=== PATIENT | female | born 1995 | race Two or more races ===

== ENCOUNTER 2018-02-11 05:47 | Emergency (ER) | payer SELFPAY ==
[~2018-02-11] VITALS: Ht 170.2 cm; Wt 108.9 kg
[2018-02-11 06:10] VITALS: BP 111/67
--- NOTE | 2018-02-11 07:57 | Diagnostic Imaging Report ---
EXAM: XR Soft Tissue Neck CLINICAL HISTORY: PAIN TECHNIQUE: Frontal and lateral views of the soft tissues of the neck. COMPARISON: No relevant prior studies available. FINDINGS: Airway: Unremarkable. No abnormal narrowing. Bones/joints: C6 and C7 are obscured by the patient's shoulders. Soft tissues: No prevertebral soft tissue thickening. No thickening of the epiglottis. IMPRESSION: No prevertebral soft tissue thickening or thickening of the epiglottis.
[2018-02-11] MEDS ORDERED: IBUPROFEN600 MG ORAL (08:15)
[2018-02-11 08:20] VITALS: BP 111/67
--- NOTE | 2018-02-11 08:48 | Emergency Room Report ---
History of Present Illness General Chief Complaint: Neck Pain Source: Patient Present Illness HPI 22-year-old female presents ED complaining of neck pain. Notes pain to the anterior aspect of her neck. Started yesterday. 7 out of 10, dull, nonradiating. Denies difficulty breathing or swallowing. Denies sore throat. Denies chest pain or shortness of breath. Denies tongue swelling. No other aggravating relieving factors. Denies any other associated symptoms Allergies: Coded Allergies: No Known Allergies (Unverified , 12/07/15) Patient History Past Medical History: none Past Surgical History: none Pertinent Family History: none Social History: Denies: smoking, alcohol use, drug use Last Menstrual Period: on period Now: No Immunizations: UTD Reviewed Nursing Documentation: PMH: Agreed; PSxH: Agreed Nursing Documentation-PMH Past Medical History: No Stated History Review of Systems All Other Systems: negative except mentioned in HPI Physical Exam Vital Signs Date Time Temp Pulse Resp B/P (MAP) Pulse Ox O2 Delivery O2 Flow Rate FiO2 02/11/18 05:59 98.6 61 18 111/67 98 Room Air 98.6 Sp02 EP Interpretation: reviewed, normal General Appearance: no apparent distress, alert, GCS 15, non-toxic Head: normocephalic ENT: hearing grossly normal, normal pharynx, no angioedema, normal voice, TMs + canals normal, uvula midline Neck: no bony tend, other - TTP L anterior neck. no stridor Respiratory: normal inspection Cardiovascular #1: normal inspection Gastrointestinal: normal inspection Rectal: deferred Genitourinary: no CVA tenderness Musculoskeletal: normal inspection Neurologic: alert, oriented x3, responsive, motor strength/tone normal, sensory intact, speech normal Psychiatric: normal inspection Skin: normal inspection Lymphatic: normal inspection Medical Decision Making Diagnostic Impression: Primary Impression: Neck pain ER Course Hospital Course 22-year-old F presents to ED complaining of L anterior neck pain Differential diagnoses include: Fracture, pharyngitis, epiglottitis, RPA Clinical course Patient placed on stretcher. After initial history, physical exam reveals female in no acute distress. There is some tenderness to the left anterior neck. Not adjacent to the thyroid. No signs of thyromegaly. No lymphadenopathy. No stridor. Pharynx unremarkable. Uvula midline I ordered soft tissue neck strain of the neck which showed no evidence of prevertebral swelling or epiglottitis Discussed findings with the patient patient is safe for discharge given outpatient follow-up Diagnosis - neck pain Stable and discharged to home with prescription for Motrin. Followup with PMD. Return to ED if symptoms recur or worsen Other X-Ray Diagnostic Results Other X-Ray Diagnostic Results : X-Ray ordered: soft tissue neck # of Views/Limited Vs Complete: 2 View Indication: Pain EP Interpretation: Yes Interpretation: no dislocation, no soft tissue swelling, no fractures, other - No prevertebral soft tissue thickening or thickening of the epiglottis Impression: No acute disease Electronically Signed by: Electronically signed by Troy Laurent MD Last Vital Signs Date Time Temp Pulse Resp B/P (MAP) Pulse Ox O2 Delivery O2 Flow Rate FiO2 02/11/18 08:20 98.6 61 18 111/67 98 Room Air 98.6 Status: improved Disposition: HOME, SELF-CARE Condition: Stable Scripts Ibuprofen* (MOTRIN*) 600 Mg Tablet 600 MG ORAL Q8H PRN for For Pain, #30 TAB 0 Refills Prov: Troy Laurent MD 02/11/18 Patient Instructions: Cervical Sprain, [id number] Troy Laurent MD Feb 11, 2018 08:48
== END 2018-02-11 08:21 | disposition home or self-care (01) ==
LOC: EMR 06:30
DX: M54.2 Cervicalgia (principal)
CPT/HCPCS: 70360; 99283